=== PATIENT | female | born 1980 | race Caucasian/White ===

== ENCOUNTER → 2019-04-01 | Outpatient (CLI) | payer OTHER ==
[~2019-04-01] VITALS: Ht 167.6 cm; Wt 95.5 kg
[2019-04-01 13:00] VITALS: BP 145/74; PULSE 88
[2019-04-01 14:03] VITALS: BP 128/96; PULSE 85
== END ==
LOC: COL.RAD 03-31 06:30
DX: M54.17 Radiculopathy, lumbosacral region (principal)
CPT/HCPCS: J3301

== ENCOUNTER → 2019-08-20 | Outpatient (CLI) | payer OTHER | LOC: COL.VAS 11:15 | DX: M79.662 Pain in left lower leg (principal) ==

== ENCOUNTER → 2019-11-22 | Outpatient (CLI) | payer OTHER ==
[~2019-11-22] VITALS: Ht 167.6 cm; Wt 103.6 kg
[~2019-11-22] MED LIST: LOVENOX 4040 MG/0.4 SQ; PRENATAL PO
--- NOTE | 2019-11-22 04:00 | NUR ---
PT TO UNIT AMBULATORY WITH SPOUSE WITH COMPLAINTS OF CONTRACTIONS. ORIENTED TO ROOM, CHANGED INTO GOWN, EFMX2 APPLIED, VS OBTAINED, SVE PERFORMED.
[2019-11-22 04:30] VITALS: BP 122/73; PULSE 72; TEMP 98
[2019-11-22 04:40] VITALS: BP 122/73; PULSE 72; TEMP 98
--- NOTE | 2019-11-22 06:35 | NUR ---
Patient states she would like to go home because it has been awhile since she has felt the contractions. SVE-2/70/-3 and patient tolerates well. 0640: Dr. Damon at nurses station and orders for patient to be discharged home. Patient off monitor and discharge paperwork gone over. Questions answered. 0650: Patient ambulatory off unit with spouse.
[2019-11-22 06:40] VITALS: BP 113/61; PULSE 80
== END ==
LOC: LDRO 04:04
DX: O62.9 Abnormality of forces of labor, unspecified (principal); Z3A.00 Weeks of gestation of pregnancy not specified

== ENCOUNTER → 2019-11-24 | Outpatient (CLI) | payer OTHER ==
[~2019-11-24] MED LIST changes: +MOTRIN 800800 MG/TAB PO; +TUMS500 MG PO
== END | disposition still patient (30) ==
LOC: ZCOL.LAB 05:52
DX: Z20.828 Contact with and (suspected) exposure to other viral communicable diseases (principal)

== ENCOUNTER 2019-11-30 07:00 | Inpatient (IN) | payer OTHER ==
[2019-11-30] VITALS (29 sets, daily range): BP systolic 95–132; BP diastolic 52–84; PULSE 71–94; TEMP 98–98.8
[~2019-11-30] VITALS: Ht 167.6 cm; Wt 101.4 kg
[~2019-11-30 07:00] MED LIST changes: -MOTRIN 800800 MG/TAB PO; -TUMS500 MG PO
--- NOTE | 2019-11-30 07:05 | NUR ---
Patient ambulatory onto unit with at side for scheduled induction of labor. Patient oriented to room, changes into gown. Patient into bed, plan of care discussed. Patient reports good movement. Denies vaginal bleeding, leaking of fluid, or contractions. EFMs on, VS taken. IV started in left wrist by this RN. Routine labs drawn. LR infusing per orders. Assessment completed. Consents signed. Questions answered. Call light within reach.
[2019-11-30] MEDS ORDERED: TUMS500 MG PO (07:29)
[2019-11-30 08:14] LABS: BASO % 0.3 % (0.0-2.0); EOS # 0.1 (0.0-0.7); EOS % 0.8 % (0-4.0); GRAN # 9.9 (1.4-6.5); GRAN % 78.1 % (42.2-75.2); HEMATOCRIT 37.6 % (37.0-47.0); HEMOGLOBIN 12.8 g/dl (12.5-16.0); LYMPH # 1.7 (1.2-3.4); MEAN CELL VOLUME 89 fl (80.0-100.0); MEAN CORPUSCULAR HEMOGLOBIN 30 pg (27.0-31.0); MEAN CORPUSCULAR HGB CONC 34 g/dl (33.0-37.0); MEAN PLATELET VOLUME 11.6 fl (7.4-10.4); MONO # 0.9 (0.1-0.6); MONO % 7.1 % (1.7-9.3); PLATELET COUNT 167 K/mm3 (130-400); RED BLOOD COUNT 4.24 M/mm3 (4.10-5.30); REDCELL DISTRIBUTION WIDTH-CV 12.6 % (11.5-14.5)
--- NOTE | 2019-11-30 10:15 | NUR ---
0955: Patient sitting up for epidural placement. 1000: Macy CHANDRA at bedside. 1004: Lidocaine. 1005: Single Shot given by Macy CHANDRA. No adverse reactions noted. 1006: Epidural Catheter. 1010: Patient repositioned to left tilt. Plan of care discussed. Call light within reach.
--- NOTE | 2019-11-30 10:45 | NUR ---
1040: Patient comfortable with epidural. SVE 4-5/80/-1. 1045: Hebert catheter placed. 1055: Variable decelerations noted with contractions. Patient feeling pressure. SVE 6/90/0.
--- NOTE | 2019-11-30 12:10 | NUR ---
1155: Recurrent variable decelerations noted with contractions. SVE 9/0. at labor desk, to bedside. Nursery nurse notified. 1200: SVE Complete/+1. Room and patient prepped for delivery. First push. 1204: Spontaneous vaginal delivery of viable male infant over intact perineum assisted by . care assumed by Archana JIMENEZ at this time. Pitocin off. 1207: Spontaneous delivery of placenta assisted by . Pitocin infusing at 333ml/hr. Fundus firm, lochia WNL. 1208: Pericare performed. Recovery period started. Fundus firm, lochia WNL.
--- NOTE | 2019-11-30 14:15 | NUR ---
1415: VS obtained. Lochia scant. Fundus firm and at the umbilicus. Epidural catheter discharged at this time. Blue tip intact. Tolerated well. Ambulated well to restroom. Voided 250mls. Perineum care provided. Ice pack in place. Clean gown on. Taken by wheelchair to room 219. Oriented to room. Reports she is going to take a nap. Denied questions or concerns.
[2019-12-01 00:30] VITALS: BP 111/65; PULSE 71; TEMP 97.8
[2019-12-01 04:05] VITALS: BP 111/58; PULSE 73; TEMP 98
[2019-12-01] MEDS ORDERED: MOTRIN 800800 MG/TAB PO (07:59)
[2019-12-01 09:11] VITALS: BP 129/73; PULSE 96; TEMP 97.9
--- NOTE | 2019-12-01 09:16 | NUR ---
Initial visit; Parents thanked for offering God's blessings for the of their son. 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
--- NOTE | 2019-12-01 14:00 | NUR ---
Discharge instructions given, pt verbalizes understanding. No further questions noted. Bands matched and hugs tag removed.
== END 2019-12-01 14:15 | disposition home or self-care (01) | DRG 806 ==
LOC: LDR 07:00 → OB 07:00
PROVIDERS: ADMIT Obstetrics & Gynecology
PROC: 10E0XZZ Delivery of Products of Conception, External Approach (ICD-10-PCS; principal; 2019-11-30)
PROC: 10907ZC Drainage of Amniotic Fluid, Therapeutic from Products of Conception, Via Natural or Artificial Opening (ICD-10-PCS; 2019-11-30)
DX: O99.284 Endocrine, nutritional and metabolic diseases complicating childbirth (principal); E72.12 Methylenetetrahydrofolate reductase deficiency; Z37.0 Single live birth; O99.12 Other diseases of the blood and blood-forming organs and certain disorders involving the immune mechanism complicating childbirth; O69.81X0 Labor and delivery complicated by cord around neck, without compression, not applicable or unspecified; O66.0 Obstructed labor due to shoulder dystocia; Z3A.39 39 weeks gestation of pregnancy
CPT/HCPCS: J2590; J2795; J7120

== ENCOUNTER 2023-12-07 10:12 | Emergency (ER) | payer OTHER ==
[~2023-12-07] VITALS: Ht 167.6 cm; Wt 90.9 kg
[~2023-12-07 10:12] MED LIST changes: +MOTRIN 800800 MG/TAB PO; +TUMS500 MG PO
[2023-12-07 10:21] VITALS: TEMP 97.9
[2023-12-07 10:52] LABS: COLLECTION METHOD CLEAN CATCH
[2023-12-07 10:54] LABS: BASO # 0.1 K/mm3 (0.0-0.2); BASO % 0.5 % (0.0-2.0); EOS # 0.2 K/mm3 (0.0-0.7); EOS % 2.6 % (0.0-4.0); GRAN # 6.1 K/mm3 (1.4-6.5); GRAN % 66.2 % (42.2-75.2); HEMATOCRIT 46.5 % (37.0-47.0); HEMOGLOBIN 15.3 g/dl (12.5-16.0); LYMPH # 2.2 K/mm3 (1.2-3.4); LYMPH % 23.6 % (20.0-51.0); MEAN CELL VOLUME 90 fl (80.0-100.0); MEAN CORPUSCULAR HEMOGLOBIN 30 pg (27-31); MEAN CORPUSCULAR HGB CONC 33 g/dl (33.0-37.0); MEAN PLATELET VOLUME 10.3 fl (7.4-10.4); MONO # 0.7 K/mm3 (0.1-0.6); PLATELET COUNT 226 K/mm3 (130-400); RED BLOOD COUNT 5.15 M/mm3 (4.10-5.30); REDCELL DISTRIBUTION WIDTH-CV 12.7 % (11.5-14.5)
[2023-12-07 10:58] LABS: PH 6.5 (5.0-8.5); URINE APPEARANCE TURBID (CLEAR/HAZY); URINE BLOOD TRACE (NEGATIVE); URINE COLOR YELLOW (YELLOW); URINE GLUCOSE NEGATIVE (NEGATIVE); URINE KETONE NEGATIVE (NEGATIVE); URINE NITRATE NEGATIVE (NEGATIVE); URINE PROTEIN(semi-quant) NEGATIVE (NEGATIVE)
[2023-12-07] MEDS ORDERED: NS 1,000 ML IV ONE (11:00)
[2023-12-07] MEDS ORDERED: Ketorolac 15 MG/ML VIAL IV ONE ×2 (11:00→11:45)
[2023-12-07 11:11] LABS: BILIRUBIN,TOTAL 0.6 mg/dL (0.2-1.2); CREATININE, serum 0.84 mg/dL (0.57-1.11); POTASSIUM 4.1 mEq/L (3.5-4.5); TOTAL PROTEIN 7.5 g/dl (6.2-8.1); URINE BACTERIA MANY /hpf (NONE SEEN)
[2023-12-07] MEDS ORDERED: Iohexol 300 - 100 ML VIAL IV ONE (12:04)
[2023-12-07] MEDS ORDERED: CEPHALEXIN500 M1 PO (12:05)
[2023-12-07] MEDS ORDERED: NS 100 ML IV SCH (12:08)
[2023-12-07] MEDS ORDERED: FLEXERIL 1010 MG/TAB PO (12:45)
[2023-12-07 12:49] VITALS: BP 123/80; PULSE 65
[2023-12-07] MEDS ORDERED: PREDNISONE20 MG PO (12:52)
== END 2023-12-07 12:55 | disposition home or self-care (01) ==
LOC: COL.ER 10:12
PROVIDERS: Physician Assistant
DX: N39.0 Urinary tract infection, site not specified (principal); R91.1 Solitary pulmonary nodule; Z87.42 Personal history of other diseases of the female genital tract
CPT/HCPCS: J1885; J7030; Q9967